=== PATIENT | female | born 1995 | race African-American/Black ===

== ENCOUNTER 2025-05-04 13:59 | Emergency (ER) | payer BC, MEDICAID, SELFPAY ==
[2025-05-04 14:18] VITALS: BP 123/89; PULSE 90; RESP 16; TEMP 36.9; O2SAT 100
--- NOTE | 2025-05-04 15:27 | ED.SKABFB ---
HPI - Skin/Abscess/Foreign Bdy General Chief complaint: Skin/Abscess/Foreign Body Stated complaint: Right Arm Rash Time Seen by Provider: 05/04/25 14:30 Source: patient and RN notes reviewed Mode of arrival: ambulatory Limitations: no limitations History of Present Illness HPI narrative: 30-year-old female presents Express Care complaining of rash and itchiness right arm. Patient says symptoms started approximately 3-4 days ago after she returned from [place]. Patient said she was in the sun a lot while she was down there higher she says she was wearing sunscreen. Patient denies any redness, swelling, pain, fevers, body aches, chills, nausea vomiting, diarrhea, abdominal pain, upper respiratory symptoms, or any other complaints. Patient reports the rash looks like freckles that were not there previously and reports thumb being pruritic. Related Data Home Medications ?Medication ?Instructions ?Recorded ?Confirmed ?Last Taken ?Type dextroamphetamine-amphetamine ER PO 05/04/25 Unknown History 15 mg 24hr capsule,extend release Allergies Allergy/AdvReac Type Severity Reaction Status Date / Time iohexol (From contrast - CT, Allergy OTHER Verified 05/04/25 14:19 X-RAY) Review of Systems Review of Systems: CONSTITUTIONAL: Denies fever, chills, or sweats. EYES: Denies visual changes, redness, or discharge. ENT: Denies rhinorrhea, congestion, sore throat, or otalgia. CARDIOVASCULAR: Denies chest pain, palpitations, or edema. RESPIRATORY: Denies cough or dyspnea. GASTROINTESTINAL: Denies abdominal pain, nausea, vomiting, or diarrhea. GENITOURINARY: Denies dysuria or hematuria. SKIN: Positive for rash and itching. MUSCULOSKELETAL: Denies back pain, joint pain, or myalgia. NEUROLOGIC: Denies headache, numbness, or weakness. PSYCHIATRIC: Denies anxiety or depression. All other systems reviewed are negative, except as documented in HPI. PMFSH Comments At the time of my signature, I reviewed and agree with the nursing past medical, surgical, social, and family history. There is no relevant family history pertinent to the patient complaint. Exam Narrative: GENERAL: This is a well-nourished, well-developed adult, in no apparent distress. They are non ill-appearing, nontoxic appearing. HEAD: normocephalic, atraumatic. EYES: Sclera clear/white. Conjunctiva normal. Vision is grossly intact. Extraocular movements intact EARS: External ears normal, Hearing grossly intact. NOSE: External nose normal THROAT: Mucous membranes moist, NECK: Neck supple, CARDIOVASCULAR: Regular rate and rhythm RESPIRATORY: Normal respiratory SKIN: Right arm: Small round/oval-shaped brown macules under measuring less than 5 mm diameter scattered scantly up the patient's right forearm to the right upper arm. No area of erythema, swelling, pain, drainage, area of fluctuance, no induration, it is nontender. Patient reports it is pruritic NEURO: awake, alert, and oriented to person, place and time. There were no obvious focal neurologic abnormalities. EXTREMITIES: No joint tenderness, effusion, or edema noted. Course Course Emergency Course: Portions of this record may have been created with voice recognition software Level of Care: Express Care Visit Vital Signs Vital signs: Vital Signs Temperature 98.4 F 05/04/25 14:18 Pulse Rate 90 05/04/25 14:18 Respiratory Rate 16 05/04/25 14:18 Blood Pressure 123/89 05/04/25 14:18 Pulse Oximetry 100 05/04/25 14:18 Temperature 98.4 F 05/04/25 14:18 Pulse Rate 90 05/04/25 14:18 Respiratory Rate 16 05/04/25 14:18 Blood Pressure 123/89 05/04/25 14:18 Pulse Oximetry 100 05/04/25 14:18 Reviewed MDM - Skin/Abscess/Foreign Bdy MDM Narrative Medical decision making narrative: Lesions appear to be freckles or solar or simple lentigo which likely was exacerbated by sunlight. Lesions are flat, round regular borders, small, without different shades of brown or color. No suspicious lesions or rash on arm. Advised patient to follow-up with PCP for further evaluation of the lesions. Will prescribe low-dose steroid cream for itchiness. Discussed physical exam findings. Advised supportive measures and signs/symptoms to go to the ER. Pt is appropriate for outpt treatment and f/u. Differential Diagnosis Differential diagnosis: Likely other (lentigo, eczema, melanoma, freckles) Critical Care Time Critical Care Time Critical Care Time: No Discharge Plan Discharge Clinical Impression: Lentigo Patient Disposition: Home Condition: Stable Instructions: Antibiotic Form Additional Instructions: Follow-up with PCP in 3-5 days for further evaluation and management. Appears to be freckles related to sunlight. Wear sunscreen if you are going to be outside. You Develop any fevers, redness, swelling, pain, green/yellow drainage, or any serious concerns please go to the ER immediately. Patient Language: Mongolian Prescriptions: New triamcinolone acetonide 0.025 % lotion 1 applic topical BID 7 Days Qty: 60 0RF Rx Instructions: Apply to affected area No Action dextroamphetamine-amphetamine 15 mg capsule,extended release 24hr PO Follow-up/Referrals: PHYSICIAN,[employer] [Primary Care Provider] - Time of Disposition: 14:48
== END 2025-05-04 14:53 | disposition home or self-care (01) ==
DX: L81.4 Other melanin hyperpigmentation (principal); F90.9 Attention-deficit hyperactivity disorder, unspecified type
CPT/HCPCS: 99203; G0463